=== PATIENT | male | born 1965 | race Caucasian/White ===

== ENCOUNTER 2025-08-21 09:43 | Emergency (ER) | payer BC, OTHER ==
[2025-08-21] MEDS ORDERED: Naproxen 500 MG TAB ONE (10:09)
[2025-08-21] MEDS ORDERED: Acetaminophen 500 MG TAB ONE (10:09)
== END 2025-08-21 10:30 | disposition home or self-care (01) ==
LOC: NAV ERS 09:43
DX: S86.111A Strain of other muscle(s) and tendon(s) of posterior muscle group at lower leg level, right leg, initial encounter (principal); I10 Essential (primary) hypertension; X50.3XXA Overexertion from repetitive movements, initial encounter; Y93.39 Activity, other involving climbing, rappelling and jumping off
CPT/HCPCS: 99283